=== PATIENT | female | born 1970 | race Caucasian/White ===

== ENCOUNTER 2022-05-06 15:13 | Emergency (ER) | payer OTHER ==
[~2022-05-06] VITALS: Ht 165.1 cm; Wt 65.9 kg
[2022-05-06 15:34] VITALS: BP 111/76
== END 2022-05-06 21:22 | disposition left against medical advice (07) ==
LOC: ER 15:16
DX: M79.644 Pain in right finger(s) (principal); Z53.21 Procedure and treatment not carried out due to patient leaving prior to being seen by health care provider

== ENCOUNTER 2024-03-20 16:36 | Outpatient (CLI) | payer BC | END 2024-03-20 23:59 | disposition home or self-care (01) | LOC: RAD 16:36 | PROVIDERS: ATTEND Student in an Organized Health Care Education/Training Program | DX: R13.19 Other dysphagia (principal); Z79.1 Long term (current) use of non-steroidal anti-inflammatories (NSAID); Z79.899 Other long term (current) drug therapy | CPT/HCPCS: 74230 ==